=== PATIENT | female | born 1985 | race Caucasian/White ===

== ENCOUNTER → 2017-10-17 23:15 | Observation (INO) ==
[2017-10-17 22:39] LABS: Bilirubin,Urine Negative (Negative); Blood,Urine Negative (Negative); Clarity,Urine Clear (Clear); Color,Urine Yellow (Yellow); Glucose,Urine (UA) Normal (Normal); Ketones,Urine Negative (Negative); Leukocyte Esterase,Urine Small (Negative); Nitrite,Urine Negative (Negative); PH,Urine 6.5 pH Units (5.0-8.0); Protein,Urine Negative (Neg-Trace); Specific Gravity,Urine < 1.005 (1.010-1.025); Urobilinogen,Urine Normal (Normal)
[2017-10-17 22:41] LABS: Bacteria,Urine None Seen per hpf (None-Few); Hyaline Casts,Urine None Seen per lpf (None-Few); RBC,Urine 0-3 per hpf (0-3); Squamous Epithelial Cell,Urine Many per lpf (None-Few)
[2017-10-17 22:56] LABS: Amphetamine Screen,Urine Negative ng/mL (Cutoff=1000); Barbiturate Screen,Urine Negative ng/mL (Cutoff=200); Benzodiazepines Screen,Urine Negative ng/mL (Cutoff=200); Cannabinoid Screen,Urine Negative ng/mL (Cutoff = 50); Cocaine Screen,Urine Negative ng/mL (Cutoff= 300); Opiate Screen,Urine Negative ng/mL (Cutoff=300); Phencyclidine Screen,Urine Negative ng/mL (Cutoff=25)
--- NOTE | 2017-10-22 18:11 | OB/GYN Progress Note ---
Date of Encounter: 10/22/17 Time of Encounter: 18:09 - Assessment and Plan (1) 24 weeks gestation of Status: Acute 32-year-old female presented to labor and delivery at 24 weeks for rule out labor. Sterile vaginal exam closed thick and high. Nitrazine is negative. No contractions noted on monitor. Patient was followed by wood cutter over the course of her stay. Urinalysis was normal. Instructions for patient were given. She is to follow-up in the office. Patient placed at pelvic rest. Subjective - Subjective Principal diagnosis: Rule out labor Interval history: 32-year-old female presented to labor and delivery at 24 weeks gestation complaining of watery discharge and contractions. Patient able to feel baby move. States contractions are very irregular. Antepartum ROS: loss of fluid Objective - Exam FHR: auscultation normal Auscultation: bilateral: normal Abdomen: Present: normal appearance, soft, gravid Uterus: Present: normal - Labs Labs: Abnormal lab results Ur Specific Deshler < 1.005 (1.010-1.025) L 10/17/17 22:26 Ur Leukocyte Esterase Small (Negative) H 10/17/17 22:26 Urine Microscopic WBC 3-5 per hpf (0-3) H 10/17/17 22:26 Ur Squamous Epith Cells Many per lpf (None-Few) H 10/17/17 22:26 Ur Culture Indicated? NO. (NO) A 10/17/17 22:26
== END | disposition home or self-care (01) ==
LOC: 1NENULAB
PROVIDERS: ADMIT Advanced Practice Midwife; ATTEND Advanced Practice Midwife

== ENCOUNTER → 2017-12-12 20:20 | Observation (INO) ==
[2017-12-12 17:49] LABS: Amphetamine Screen,Urine Negative ng/mL (Cutoff=1000); Barbiturate Screen,Urine Negative ng/mL (Cutoff=200); Benzodiazepines Screen,Urine Negative ng/mL (Cutoff=200); Cannabinoid Screen,Urine Negative ng/mL (Cutoff = 50); Cocaine Screen,Urine Negative ng/mL (Cutoff= 300); Opiate Screen,Urine Negative ng/mL (Cutoff=300); Phencyclidine Screen,Urine Negative ng/mL (Cutoff=25)
--- NOTE | 2017-12-12 19:29 | OB/GYN Progress Note ---
Date of Encounter: 12/12/17 Time of Encounter: 19:25 - Assessment and Plan (1) 28 weeks gestation of Current Visit: Yes Status: Acute admitted for observation (2) Contact dermatitis Current Visit: Yes Status: Acute Will give Claritin and 1% hydrocortisone cream Will prescribe Prednisone dose pack Discussed POC and patient with Dr. Weller Patient to follow up with Dr. Medina as scheduled. Qualifiers: Contact dermatitis type: allergic Contact dermatitis trigger: unspecified trigger Qualified Code(s): L23.9 - Allergic contact dermatitis, unspecified cause Subjective - Subjective Principal diagnosis: Rash in Interval history: Patient is a 32 y/o @ 28 weeks gestation presents to labor and delivery with complaints of a rash that stated yesterday and is progressively has gotten worse. Patient was seen by her OB Dr. Medina today and had liver enzymes, bile acids and TORCH titers. Patient states she was told to take benadryl but she is unable to due to caring for her child. Patient reports good movement, denies contractions, LOF or VB. Patient denies any difficulty with breathing. Patient states she was around Mums but she has never had a reaction to them in the past. Patient denies any changes in soaps or lotions. Antepartum ROS: movement normal, no loss of fluid, no vaginal bleeding, no contractions Objective - Exam FHR: auscultation normal FHR comments: FHR 130 bpm moderate variability + 15x15 accels no decels noted. No contractions noted. Auscultation: bilateral: normal Abdomen: Present: normal appearance, soft, gravid Uterus: Present: normal, firm Comments: Rash noted on bilateral knees and arms and scalp. Areas of rash are raised and red.
[~2017-12-12 20:20] MED LIST: Loratadine 10 MG TABLET PO SCH
== END | disposition home or self-care (01) ==
LOC: 1NENULAB
PROVIDERS: ADMIT Advanced Practice Midwife; ATTEND Advanced Practice Midwife

== ENCOUNTER 2018-01-26 10:33 | Observation (INO) ==
[2018-01-26 11:20] LABS: Basophils # 0.1 K/mcL (0.0-0.2); Basophils % 0.8 %; Eosinophils # 0.1 K/mcL (0.0-0.6); Eosinophils % 0.5 %; Hemoglobin 11.3 g/dL (11.5-15.4); Immature Granulocytes % 4.8 % (0-4); Lymphocytes # 1.5 K/mcL (0.6-4.6); Lymphocytes % 16.1 %; Mean Corpuscular HGB Conc 34.2 g/dL (31.6-35.5); Mean Corpuscular Hemoglobin 29.8 pg (28.0-33.3); Mean Corpuscular Volume 87.1 fL (83.0-100.0); Mean Platelet Volume 10.4 fL (9.4-12.4); Monocytes # 1.1 K/mcL (0.0-1.3); Neutrophils # 6.2 K/mcL (1.6-8.9); Platelet Count 157 K/mcL (140-400); Red Blood Count 3.79 M/mcL (3.82-4.97); Red Cell Distribution Width 13.5 % (11.5-14.5); Segmented Neutrophils % 65.8 %
[2018-01-26 11:39] LABS: Alanine Aminotransferase 16 Units/L (7-52); Aspartate Amino Transferase 18 Units/L (13-39); BUN/Creatinine Ratio 17 (6-26); Blood Urea Nitrogen 8 mg/dL (6-20); Lactate Dehydrogenase 147 Units/L (140-271); Uric Acid 3.8 mg/dL (2.3-7.6); eGFR For Non-African Americans > 60 (> 60)
[2018-01-26 12:00] LABS: Protein/Creatinine Ratio,Urine 0.43 mg/mg (0.00-0.20)
[2018-01-26 12:01] LABS: Amphetamine Screen,Urine Negative ng/mL (Cutoff=1000); Barbiturate Screen,Urine Negative ng/mL (Cutoff=200); Benzodiazepines Screen,Urine Negative ng/mL (Cutoff=200); Cannabinoid Screen,Urine Negative ng/mL (Cutoff = 50); Cocaine Screen,Urine Negative ng/mL (Cutoff= 300); Opiate Screen,Urine Negative ng/mL (Cutoff=300); Phencyclidine Screen,Urine Negative ng/mL (Cutoff=25)
[2018-01-26] MEDS: Betamethasone Acet/SodPhos 6 MG/ML MDV IM SCH (13:57)
--- NOTE | 2018-01-26 14:18 | OB/GYN Progress Note ---
Date of Encounter: 01/26/18 Time of Encounter: 14:14 - Assessment and Plan (1) 34 weeks gestation of Current Visit: Yes Status: Acute POC per consult with Dr Sauer Betamethasone Vitals Q4 hours Repeat PIH labs in am Consider discharge with increased office surveillance vs IOL (2) Pre-eclampsia affecting , antepartum Current Visit: Yes Status: Acute Subjective - Subjective Principal diagnosis: Pre-Eclampsia Interval history: Ms Collins is a at 34 weeks and 5 days that presents to labor and delivery triage with c/o edema and elevated blood pressures this am. She states positive movement. She denies headache, vision changes, epigastric pain, leaking of fluid, vaginal bleeding, and cramping/contractions. She has a positive history of preeclampsia with her previous child which was delivered early at 37 weeks gestation. She has been seen by Dr Medina for her care. Antepartum ROS: movement normal, no loss of fluid, no vaginal bleeding, no contractions Objective - Vital Signs Vital Signs: Intake and Output 01/25/18 01/26/18 01/26/18 23:59 07:59 15:59 Other: Weight 81 kg Patient Weight 01/26/18 23:59 Weight 81 kg - Exam FHR: auscultation normal, category 1 FHR comments: FHTs 145 with moderate variability and 15 x 15 accels. no decels. Category I tracing No contractions per monitor Auscultation: bilateral: normal Abdomen: Present: normal appearance, soft, gravid Uterus: Present: normal. Absent: firm, tenderness - Labs Labs: Abnormal lab results RBC 3.79 M/mcL (3.82-4.97) L 01/26/18 10:43 Hgb 11.3 g/dL (11.5-15.4) L 01/26/18 10:43 Hct 33.0 % (35.3-44.9) L 01/26/18 10:43 Immature Gran % 4.8 % (0-4) H 01/26/18 10:43 Creatinine 0.46 mg/dL (0.60-1.20) L 01/26/18 10:43 Protein/Creatinin Ratio 0.43 mg/mg (0.00-0.20) H 01/26/18 11:14
[2018-01-26] MEDS ORDERED: Acetaminophen 325 MG TABLET PO ONE (16:02)
[2018-01-27 07:03] LABS: Alanine Aminotransferase 16 Units/L (7-52); Aspartate Amino Transferase 17 Units/L (13-39); BUN/Creatinine Ratio 17 (6-26); Blood Urea Nitrogen 9 mg/dL (6-20); Lactate Dehydrogenase 155 Units/L (140-271); Uric Acid 3.8 mg/dL (2.3-7.6); eGFR For Non-African Americans > 60 (> 60)
--- NOTE | 2018-01-27 11:04 | Discharge Summary ---
Date of Encounter: 01/27/18 Time of Encounter: 11:04 - Discharge Diagnosis (1) 35 weeks gestation of Priority: Primary Status: Acute Comments: admitted for observation for [facility] labs stable and reviewed with Dr. Varner. Plan to discharge home after second dose of betamethasone (2) Pre-eclampsia affecting , antepartum Priority: Secondary Status: Acute Comments: Patient educated on [facility] s/s - Discharge Medications Home Medications: Vits96/Iron Fum/Folic [ Tablet] 1 each PO DAILY 12/12/17 [History] Ferrous Sulfate [High Potency Iron] 27 mg PO DAILY 01/26/18 [History] Allergies/Adverse Reactions: Allergy/AdvReac Type Severity Reaction Status Date / Time pseudoephedrine Allergy Mild Confusion Verified 11/12/17 12:42 [From Sudafed] Amoxicillin Allergy Rash Verified 11/12/17 12:42 Cefprozil [From Cefzil] Allergy Rash Verified 11/12/17 12:42 clavulanic acid Allergy Rash Verified 11/12/17 12:42 [From Augmentin] Penicillins Allergy Rash Verified 11/12/17 12:42 Data Procedures and tests throughout hospitalization: Laboratory Tests 01/26/18 01/26/18 01/26/18 10:43 10:43 11:14 WBC 9.5 RBC 3.79 L Hgb 11.3 L Hct 33.0 L MCV 87.1 MCH 29.8 MCHC 34.2 RDW 13.5 Plt Count 157 MPV 10.4 Immature Gran % 4.8 H Seg Neutrophils % 65.8 Lymphocytes % 16.1 Monocytes % 12.0 Eosinophils % 0.5 Basophils % 0.8 Neutrophils # 6.2 Lymphocytes # 1.5 Monocytes # 1.1 Eosinophils # 0.1 Basophils # 0.1 BUN 8 Creatinine 0.46 L Est GFR ( Amer) > 60 Est GFR (Non-Af Amer) > 60 BUN/Creatinine Ratio 17 Uric Acid 3.8 AST 18 ALT 16 Lactate Dehydrogenase 147 Urine Creatinine 14 Protein/Creatinin Ratio 0.43 H Urine Total Protein 6 Urine Opiates Screen Ur Barbiturates Screen Ur Phencyclidine Scrn Ur Amphetamines Screen U Benzodiazepines Scrn Urine Cocaine Screen U Marijuana (THC) Screen Ur Drug Screen Interp 01/26/18 01/27/18 11:14 06:14 WBC RBC Hgb Hct MCV MCH MCHC RDW Plt Count MPV Immature Gran % Seg Neutrophils % Lymphocytes % Monocytes % Eosinophils % Basophils % Neutrophils # Lymphocytes # Monocytes # Eosinophils # Basophils # BUN 9 Creatinine 0.53 L Est GFR ( Amer) > 60 Est GFR (Non-Af Amer) > 60 BUN/Creatinine Ratio 17 Uric Acid 3.8 AST 17 ALT 16 Lactate Dehydrogenase 155 Urine Creatinine Protein/Creatinin Ratio Urine Total Protein Urine Opiates Screen Negative Ur Barbiturates Screen Negative Ur Phencyclidine Scrn Negative Ur Amphetamines Screen Negative U Benzodiazepines Scrn Negative Urine Cocaine Screen Negative U Marijuana (THC) Screen Negative Ur Drug Screen Interp See Below Labs on day of discharge: Labs from last 24 hours 01/27/18 01/26/18 01/26/18 06:14 11:14 11:14 WBC RBC Hgb Hct MCV MCH MCHC RDW Plt Count MPV Immature Gran % Seg Neutrophils % Lymphocytes % Monocytes % Eosinophils % Basophils % Neutrophils # Lymphocytes # Monocytes # Eosinophils # Basophils # BUN 9 Creatinine 0.53 L Est GFR ( Amer) > 60 Est GFR (Non-Af Amer) > 60 BUN/Creatinine Ratio 17 Uric Acid 3.8 AST 17 ALT 16 Lactate Dehydrogenase 155 Urine Creatinine 14 Protein/Creatinin Ratio 0.43 H Urine Total Protein 6 Urine Opiates Screen Negative Ur Barbiturates Screen Negative Ur Phencyclidine Scrn Negative Ur Amphetamines Screen Negative U Benzodiazepines Scrn Negative Urine Cocaine Screen Negative U Marijuana (THC) Screen Negative Ur Drug Screen Interp See Below 01/26/18 01/26/18 10:43 10:43 WBC 9.5 RBC 3.79 L Hgb 11.3 L Hct 33.0 L MCV 87.1 MCH 29.8 MCHC 34.2 RDW 13.5 Plt Count 157 MPV 10.4 Immature Gran % 4.8 H Seg Neutrophils % 65.8 Lymphocytes % 16.1 Monocytes % 12.0 Eosinophils % 0.5 Basophils % 0.8 Neutrophils # 6.2 Lymphocytes # 1.5 Monocytes # 1.1 Eosinophils # 0.1 Basophils # 0.1 BUN 8 Creatinine 0.46 L Est GFR ( Amer) > 60 Est GFR (Non-Af Amer) > 60 BUN/Creatinine Ratio 17 Uric Acid 3.8 AST 18 ALT 16 Lactate Dehydrogenase 147 Urine Creatinine Protein/Creatinin Ratio Urine Total Protein Urine Opiates Screen Ur Barbiturates Screen Ur Phencyclidine Scrn Ur Amphetamines Screen U Benzodiazepines Scrn Urine Cocaine Screen U Marijuana (THC) Screen Ur Drug Screen Interp Date of admission: 01/26/18 10:33 Discharging clinician: Mari Holley Anticipated date of discharge: 01/27/18 - Patient Status Disposition: Home, Self-Care Condition: Good Functional capacity at discharge: independent ambulation - Discharge Instructions Follow Up With: Gilberto Medina MD [Partnered Physician] - - Diet and Activity Activity: increase activity as tolerated Diet: regular diet Hospital Course DRY TALC RACKER Hospital course: Patient is a 32 y/o at 35 weeks and o days that presented to labor and delivery triage with c/o edema and elevated blood pressures yesterday. She states positive movement. She denies headache, vision changes, epigastric pain, leaking of fluid, vaginal bleeding, and cramping/contractions. She has a positive history of preeclampsia with her previous child which was delivered early at 37 weeks gestation. She has been seen by Dr Medina for her care. Antepartum ROS: movement normal, no loss of fluid, no vaginal bleeding, no contractions Time Attestation: Total time spent providing and/or coordinating discharge services: Time Spent: Less than 30 minutes Exam - Constitutional General appearance IM: A&O X 3, pleasant, answers questions appropriately - Respiratory Respiratory exam: Present: CTAB - Cardiovascular Cardiovascular exam IM: Present: RRR, +S1, +S2 - GI/Abdominal GI/Abdominal exam IM: normal bowel sounds - Extremities Exam Extremities exam IM: Present: full ROM, normal capillary refill, normal inspection - Neurological Exam Neurological exam: alert, oriented X3, reflexes normal - Other Additional findings: FHR 125 bpm moderate variability +15x15 accels no decels noted. NO contractions noted. Cat. 1 tracing. - VTE Reasons for not Prescribing Prophylaxis: Treatment not Indicated - Low risk for VTE
[2018-01-27] MEDS: Betamethasone Acet/SodPhos 6 MG/ML MDV IM SCH (13:47)
== END 2018-01-27 13:55 | disposition home or self-care (01) ==
LOC: 1NENULAB
PROVIDERS: ADMIT Advanced Practice Midwife; ATTEND Advanced Practice Midwife

== ENCOUNTER 2018-02-18 10:15 | Inpatient (IN) ==
[2018-02-18] MEDS ORDERED: miSOPROStol 25 MCG TABLET PO PRN (10:40)
[2018-02-18] MEDS ORDERED: Naloxone 0.4 MG/ML INJ IVP PRN (10:40)
[2018-02-18] MEDS ORDERED: Ondansetron 4 MG/2 ML VIAL IVP PRN (10:40)
[2018-02-18] MEDS ORDERED: *HR* Nalbuphine 10 MG/ML AMPUL IVP PRN (10:40)
[2018-02-18] MEDS ORDERED: Metoclopramide 10 MG/2 ML VIAL IVP PRN (10:40)
[2018-02-18] MEDS ORDERED: Famotidine 20 MG/2 ML VIAL IVP PRN (10:40)
[2018-02-18] MEDS ORDERED: Ringers Solution, Lactated 1,000 ML ONE (10:45)
[2018-02-18] MEDS ORDERED: Ringers Solution, Lactated 1,000 ML IVC SCH (10:45)
[2018-02-18] MEDS ORDERED: EPHEDrine 50 MG/ML VIAL IVP PRN (10:57)
[2018-02-18] MEDS ORDERED: Epidural Premix (fent/bupiv) 110 ML EP SCH (11:00)
[2018-02-18] MEDS ORDERED: Lidocaine -MPF 2% 5 ML VIAL ONE (11:42)
--- NOTE | 2018-02-18 12:00 | Anesthesia Evaluation PreOp ---
Date of Encounter: 02/18/18 Time of Encounter: 11:57 - Past History Planned Operation: vaginal del, induction Cardiac History: Denies any Significant Hx Pulmonary History: Denies Any Significant HX ORTHOPEDIC TECHNICIAN History: Denies Any Significant HX Other Medical History: Denies Any Significant HX Anesthesia History: No Prior Anesthetic Complications, Past Anesthesia (previous epidural, blood pressure went real low post epidural.) Alcohol Use: none Drug use: none Medications and Allergies Vits96/Iron Fum/Folic [ Tablet] 1 each PO DAILY 12/12/17 [History] Ferrous Sulfate [High Potency Iron] 27 mg PO DAILY 01/26/18 [History] Allergy/AdvReac Type Severity Reaction Status Date / Time pseudoephedrine Allergy Mild Confusion Verified 11/12/17 12:42 [From Sudafed] Amoxicillin Allergy Rash Verified 11/12/17 12:42 Cefprozil [From Cefzil] Allergy Rash Verified 11/12/17 12:42 clavulanic acid Allergy Rash Verified 11/12/17 12:42 [From Augmentin] Penicillins Allergy Rash Verified 11/12/17 12:42 Anesthesia Exam - HEENT Pupil (Motor): Pupils equal Mallampati: II Teeth: Normal Oral Opening: Greater than 3 - ORTHOPEDIC TECHNICIAN LOC: Oriented ORTHOPEDIC TECHNICIAN Motor: Normal RUE, Normal LUE, Normal RLE, Normal LLE, Normal Face ORTHOPEDIC TECHNICIAN Sensory: Normal: RUE, LUE, RLE, LLE, Face - Cardiac Rhythm: Regular Murmur: None - Pulmonary Breath Sounds: bilateral Clear Respiratory Effort: Symmetrical Anesthesia Assess/Plan ASA Score: 2 Level of consciousness: Cooperative, Oriented, Tranquil Anesthetic Plan: General, Spinal, Epidural Monitoring Plan: Standard Monitors Recovery Plan: PACU
--- NOTE | 2018-02-18 12:01 | OB Labor Progress Note ---
Date of Encounter: 02/18/18 Time of Encounter: 11:57 Labor Progress Note - Subjective Subjective: Patient comfortable and reports no contractions - Cervix Cervix: 50/-2 - Heart Tones Heart Tones: Baseline 140 Moderate variability Accelerations present 15x15 No decelerations FHR category I - Albers Albers: No activity - Interventions Interventions: SVE Cook catheter placed without difficulty 50mcg po misoprostol given - Plan Physician notified: No Plan: Continue induction management Recheck catheter Status evaluation 4 hours Anticipate vaginal delivery
[2018-02-18 12:22] LABS: Basophils # 0.1 K/mcL (0.0-0.2); Basophils % 0.6 %; Eosinophils # 0.1 K/mcL (0.0-0.6); Eosinophils % 0.7 %; Hematocrit 33.3 % (35.3-44.9); Hemoglobin 11.6 g/dL (11.5-15.4); Immature Granulocytes % 2.8 % (0-4); Lymphocytes # 1.7 K/mcL (0.6-4.6); Lymphocytes % 17.3 %; Mean Corpuscular HGB Conc 34.8 g/dL (31.6-35.5); Mean Corpuscular Hemoglobin 29.4 pg (28.0-33.3); Mean Corpuscular Volume 84.3 fL (83.0-100.0); Mean Platelet Volume 10.5 fL (9.4-12.4); Monocytes % 10.1 %; Neutrophils # 6.6 K/mcL (1.6-8.9); Platelet Count 172 K/mcL (140-400); Red Blood Count 3.95 M/mcL (3.82-4.97); Segmented Neutrophils % 68.5 %
[2018-02-18 12:31] LABS: Amphetamine Screen,Urine Negative ng/mL (Cutoff=1000); Barbiturate Screen,Urine Negative ng/mL (Cutoff=200); Benzodiazepines Screen,Urine Negative ng/mL (Cutoff=200); Cannabinoid Screen,Urine Negative ng/mL (Cutoff = 50); Cocaine Screen,Urine Negative ng/mL (Cutoff= 300); Opiate Screen,Urine Negative ng/mL (Cutoff=300); Phencyclidine Screen,Urine Negative ng/mL (Cutoff=25)
--- NOTE | 2018-02-18 13:49 | OB/GYN History & Physical ---
Date of Encounter: 02/18/18 Time of Encounter: 13:44 Assessment and Plan (1) 38 weeks gestation of Current visit: Yes Status: Acute (2) Pre-eclampsia affecting , antepartum Current visit: No Status: Acute Induction of labor History of Present Illness Chief complaint: Elevated 24-hour urine HPI: Ms. Collins is a 32 year old female who presented to office today at 38 weeks and 1 day. Patient not feeling well. Patient states over weekend blood pressures have been very high with diastolics between 110 and 116. Patient with headache. Blood pressure today was stable. 24-hour urine came back showing 471. Because of elevated 24-hour urine, labile blood pressures and headaches patient was sent to labor and delivery for induction at 38 weeks and 1 day. Patient with EDC of March 04. Patient is with allergies to amoxicillin, Cefzil, Sudafed and Augmentin. She is currently on vitamins. She has no chronic medical conditions. Surgical history is negative. Socially she d enies tobacco or illicit drug use. She does drink occasionally. Obstetric history significant for one term vaginal delivery. Family history is significant for arthritis, lymphoma, hypertension and heart disease. Past Med Surg Social Fam HX - Past Medical History Medical history: asthma Additional medical history: subchoronic hemorrage that measured 6cm and now is 2 cm as of 2weeks Psychiatric history: anxiety - Past Surgical History Additional surgical history: 2 colonoscopy. T&A. - Social History Smoking Status: Never smoker Smokeless Tobacco Status: No Alcohol use: none Drug use: none - Family History Mother Family Member Ethnicity: Non- Living Status: Still Living Hx Family Cardiac Disorders: No Hx Family Respiratory Disorders: No Hx Family Cancer: No Hx Family GI Disorders: No Hx Family Genitourinary Disorders: No Hx Family Endocrine Disorder: No Hx Family Musculoskeletal Disorders: No Hx Family Neuromuscular Disorders: No Hx Family Neurologic Disorders: No Hx Family HEENT Disorders: No Hx Family Autoimmune Disorders: No Hx Family Reproductive Disorders: No Hx Family Psychosocial Disorders: No Hx Family Medical Disorders: No Obstetrical History - Pregnancies : 2 Para: 1 Term: 1 Livin Medications and Allergies Vits96/Iron Fum/Folic [ Tablet] 1 each PO DAILY 12/12/17 [History] Ferrous Sulfate [High Potency Iron] 27 mg PO DAILY 01/26/18 [History] Allergy/AdvReac Type Severity Reaction Status Date / Time pseudoephedrine Allergy Mild Confusion Verified 11/12/17 12:42 [From Sudafed] Amoxicillin Allergy Rash Verified 11/12/17 12:42 Cefprozil [From Cefzil] Allergy Rash Verified 11/12/17 12:42 clavulanic acid Allergy Rash Verified 11/12/17 12:42 [From Augmentin] Penicillins Allergy Rash Verified 11/12/17 12:42 Review of System OB All systems PM: reviewed and no additional remarkable complaints except as stated Exam - Constitutional Constitutional: well developed, well nourished, no acute distress, average body habitus - HEENT HEENT: EOMI, PERRL - Neck Neck exam: full ROM - Lungs Respiratory exam: CTAB - Cardiovascular Cardiovascular exam: RRR - Abdomen Abdomen: Present: bowel sounds normal, gravid, non tender - Extremities Extremities exam: full ROM - Vagina Vagina: Present: normal moisture - Cervix Dilation: 1 Effacement: 50 Station: -2 - Uterus Uterus exam: Present: normal size Results Result Diagrams: 02/18/18 11:00 Abnormal lab results Hct 33.3 % (35.3-44.9) L 02/18/18 11:00 All other labs normal. - VTE Reasons for not Prescribing Prophylaxis: Treatment not Indicated - Low risk for VTE
[2018-02-18 15:00] LABS: Alanine Aminotransferase 12 Units/L (7-52); Aspartate Amino Transferase 16 Units/L (13-39); BUN/Creatinine Ratio 21 (6-26); Blood Urea Nitrogen 10 mg/dL (6-20); Lactate Dehydrogenase 231 Units/L (140-271); Uric Acid 4.4 mg/dL (2.3-7.6); eGFR For Non-African Americans > 60 (> 60)
[2018-02-18 15:52] LABS: Protein/Creatinine Ratio,Urine 0.44 mg/mg (0.00-0.20)
--- NOTE | 2018-02-18 16:38 | OB/GYN Progress Note ---
Date of Encounter: 02/18/18 Time of Encounter: 16:36 - Assessment and Plan (1) 38 weeks gestation of Current Visit: Yes Status: Acute (2) Pre-eclampsia affecting , antepartum Current Visit: No Status: Acute Induction of labor Subjective - Subjective Principal diagnosis: labor eval Interval history: 32-year-old female with preeclampsia admitted for induction of labor. Reyes removed. Sterile vaginal exam 7/90/0 station and vertex. Artificial rupture members performed with clear fluid. Objective - Vital Signs Vital Signs: Intake and Output 02/18/18 02/18/18 02/18/18 07:59 15:59 23:59 Other: Weight 83.1 kg Patient Weight 02/18/18 23:59 Weight 83.1 kg - Exam FHR: category 1 Abdomen: Present: normal appearance Uterus: Present: normal, firm Cervical dilation: 7 Cervix effacement: 90 station: 0 - Labs Labs: Abnormal lab results Hct 33.3 % (35.3-44.9) L 02/18/18 11:00 Creatinine 0.48 mg/dL (0.60-1.20) L 02/18/18 11:00 Protein/Creatinin Ratio 0.44 mg/mg (0.00-0.20) H 02/18/18 11:00
[2018-02-18] MEDS ORDERED: Oxytocin 20 units/ LR 1000 mL 20 UNIT/1,000 ML BAG IVC ONE ×2 (17:41→19:20)
--- NOTE | 2018-02-18 18:35 | OB/GYN Procedure Note ---
Delivery - Delivery Date: 02/18/18 Provider: Gilberto Medina Intrapartum events: none Delivery induction: harry Delivery augmentation: rupture of membranes Delivery monitor: external FHT, external uterine Anesthesia: none Quantitated Blood Loss: 300 - Infant (s) Infant A Infant Delivery Date: 02/18/18 Infant Delivery Time: 17:48 Presentation: vertex Position: OA Route of delivery: Gender: Female Viability: Viable Pounds: 6 Ounces: 6 Weight Gram: 2.905 kg at 1 minute: 8 at 5 mins: 9 Shoulder Dystocia: not encountered Specimens collected: cord blood Placenta: spontaneous Cord: nuchal cord, delivered through nuchal - Repair Episiotomy: none Laceration Description: Perineal - 2nd Degree - Complications Delivery complications: none - Disposition Mom disposition: stable in LDR disposition: stable in LDR - Comments Comments: Patient progressed to complete and pushing and had a spontaneous vaginal delivery of a female over an intact perineum. Infant's head was in the perineum easily. There was a cord around the neck 1 which could not be reduced and thus was delivered through. Infant cried immediately upon delivery. Nuchal cord was unwrapped. After 1 minute the cord was clamped and cut and the infant was then passed to nursing in attendance. Cord bloods obtained. Placenta was delivered spontaneously and intact. There are no cervical, vaginal, or periurethral lacerations noted. There was a second-degree perineal laceration through patient's previous scar. Patient delivered a female infant weight was 6 lbs. 6 oz. with Apgars of 8 at 1 minute 9 at 5 minutes estimated blood loss is 300 mL
[2018-02-18] MEDS ORDERED: Acetaminophen 325 MG TABLET PO PRN (20:47)
[2018-02-18] MEDS ORDERED: Measles/Mumps/Rubella Vacc 0.5 ML VIAL SQ PRN (20:47)
[2018-02-18] MEDS ORDERED: Oxytocin 20 units/ LR 1000 mL 20 UNIT/1,000 ML BAG IVC SCH (20:47)
[2018-02-18] MEDS: Ibuprofen 600 MG TABLET PO PRN (21:36)
[2018-02-19] MEDS: Ibuprofen 600 MG TABLET PO PRN ×2 (03:13→10:34)
[2018-02-19 08:06] LABS: Basophils # 0.1 K/mcL (0.0-0.2); Basophils % 0.5 %; Eosinophils # 0.1 K/mcL (0.0-0.6); Eosinophils % 0.5 %; Hematocrit 29.4 % (35.3-44.9); Lymphocytes # 2.2 K/mcL (0.6-4.6); Lymphocytes % 14.4 %; Mean Corpuscular Hemoglobin 29.1 pg (28.0-33.3); Mean Corpuscular Volume 85.5 fL (83.0-100.0); Mean Platelet Volume 10.3 fL (9.4-12.4); Monocytes # 1.7 K/mcL (0.0-1.3); Monocytes % 10.7 %; Neutrophils # 11.1 K/mcL (1.6-8.9); Platelet Count 177 K/mcL (140-400); Red Blood Count 3.44 M/mcL (3.82-4.97); Red Cell Distribution Width 13.2 % (11.5-14.5); Segmented Neutrophils % 71.9 %
[2018-02-19] MEDS ORDERED: Prenatal Vit/FA 1 EACH TABLET PO SCH (09:00)
[2018-02-19 09:35] VITALS: BP 124/85
--- NOTE | 2018-02-19 10:50 | Discharge Summary ---
Date of Encounter: 02/19/18 Time of Encounter: 10:46 - Discharge Diagnosis (1) Vaginal delivery Priority: Primary Status: Acute Comments: S/P vaginal delivery day 1 Pain well controlled Lochia light and without clots VSS Tolerating regular diet; passing flatus Voiding without difficulty Breast feeding Discharge home today POC per consult with Dr Thomas - Discharge Medications Prescriptions: Ibuprofen [Motrin] 600 mg PO Q6HR PRN #30 tablet PRN Reason: pain Breast Pump [BREAST PUMP] 1 each .ROUTE AD #1 each Docusate [Colace] 100 mg PO BID #30 capsule Ferrous Sulfate 325 mg PO DAILY #90 tablet Home Medications: Vits96/Iron Fum/Folic [ Tablet] 1 each PO DAILY 12/12/17 [History] Acetaminophen [Tylenol] 650 mg PO Q6HR PRN tablet 02/19/18 [Rx] Breast Pump [BREAST PUMP] 1 each .ROUTE AD #1 each 02/19/18 [Rx] Docusate [Colace] 100 mg PO BID #30 capsule 02/19/18 [Rx] Ferrous Sulfate 325 mg PO DAILY #90 tablet 02/19/18 [Rx] Ibuprofen [Motrin] 600 mg PO Q6HR PRN #30 tablet 02/19/18 [Rx] Allergies/Adverse Reactions: Allergy/AdvReac Type Severity Reaction Status Date / Time pseudoephedrine Allergy Mild Confusion Verified 11/12/17 12:42 [From Sudafed] Amoxicillin Allergy Rash Verified 11/12/17 12:42 Cefprozil [From Cefzil] Allergy Rash Verified 11/12/17 12:42 clavulanic acid Allergy Rash Verified 11/12/17 12:42 [From Augmentin] Penicillins Allergy Rash Verified 11/12/17 12:42 Data Procedures and tests throughout hospitalization: Laboratory Tests 02/18/18 02/18/18 02/18/18 11:00 11:00 11:00 WBC 9.6 RBC 3.95 Hgb 11.6 Hct 33.3 L MCV 84.3 MCH 29.4 MCHC 34.8 RDW 13.0 Plt Count 172 MPV 10.5 Immature Gran % 2.8 Seg Neutrophils % 68.5 Lymphocytes % 17.3 Monocytes % 10.1 Eosinophils % 0.7 Basophils % 0.6 Neutrophils # 6.6 Lymphocytes # 1.7 Monocytes # 1.0 Eosinophils # 0.1 Basophils # 0.1 BUN 10 Creatinine 0.48 L Est GFR ( Amer) > 60 Est GFR (Non-Af Amer) > 60 BUN/Creatinine Ratio 21 Uric Acid 4.4 AST 16 ALT 12 Lactate Dehydrogenase 231 Urine Creatinine Protein/Creatinin Ratio Urine Total Protein Urine Opiates Screen Negative Ur Barbiturates Screen Negative Ur Phencyclidine Scrn Negative Ur Amphetamines Screen Negative U Benzodiazepines Scrn Negative Urine Cocaine Screen Negative U Marijuana (THC) Screen Negative Ur Drug Screen Interp See Below 02/18/18 02/19/18 11:00 07:52 WBC 15.5 H D RBC 3.44 L Hgb 10.0 L D Hct 29.4 L MCV 85.5 MCH 29.1 MCHC 34.0 RDW 13.2 Plt Count 177 MPV 10.3 Immature Gran % 2.0 Seg Neutrophils % 71.9 Lymphocytes % 14.4 Monocytes % 10.7 Eosinophils % 0.5 Basophils % 0.5 Neutrophils # 11.1 H Lymphocytes # 2.2 Monocytes # 1.7 H Eosinophils # 0.1 Basophils # 0.1 BUN Creatinine Est GFR ( Amer) Est GFR (Non-Af Amer) BUN/Creatinine Ratio Uric Acid AST ALT Lactate Dehydrogenase Urine Creatinine 9 Protein/Creatinin Ratio 0.44 H Urine Total Protein 4 Urine Opiates Screen Ur Barbiturates Screen Ur Phencyclidine Scrn Ur Amphetamines Screen U Benzodiazepines Scrn Urine Cocaine Screen U Marijuana (THC) Screen Ur Drug Screen Interp Labs on day of discharge: Labs from last 24 hours 02/19/18 02/18/18 02/18/18 07:52 11:00 11:00 WBC 15.5 H D RBC 3.44 L Hgb 10.0 L D Hct 29.4 L MCV 85.5 MCH 29.1 MCHC 34.0 RDW 13.2 Plt Count 177 MPV 10.3 Immature Gran % 2.0 Seg Neutrophils % 71.9 Lymphocytes % 14.4 Monocytes % 10.7 Eosinophils % 0.5 Basophils % 0.5 Neutrophils # 11.1 H Lymphocytes # 2.2 Monocytes # 1.7 H Eosinophils # 0.1 Basophils # 0.1 BUN 10 Creatinine 0.48 L Est GFR ( Amer) > 60 Est GFR (Non-Af Amer) > 60 BUN/Creatinine Ratio 21 Uric Acid 4.4 AST 16 ALT 12 Lactate Dehydrogenase 231 Urine Creatinine 9 Protein/Creatinin Ratio 0.44 H Urine Total Protein 4 Urine Opiates Screen Ur Barbiturates Screen Ur Phencyclidine Scrn Ur Amphetamines Screen U Benzodiazepines Scrn Urine Cocaine Screen U Marijuana (THC) Screen Ur Drug Screen Interp 02/18/18 02/18/18 11:00 11:00 WBC 9.6 RBC 3.95 Hgb 11.6 Hct 33.3 L MCV 84.3 MCH 29.4 MCHC 34.8 RDW 13.0 Plt Count 172 MPV 10.5 Immature Gran % 2.8 Seg Neutrophils % 68.5 Lymphocytes % 17.3 Monocytes % 10.1 Eosinophils % 0.7 Basophils % 0.6 Neutrophils # 6.6 Lymphocytes # 1.7 Monocytes # 1.0 Eosinophils # 0.1 Basophils # 0.1 BUN Creatinine Est GFR ( Amer) Est GFR (Non-Af Amer) BUN/Creatinine Ratio Uric Acid AST ALT Lactate Dehydrogenase Urine Creatinine Protein/Creatinin Ratio Urine Total Protein Urine Opiates Screen Negative Ur Barbiturates Screen Negative Ur Phencyclidine Scrn Negative Ur Amphetamines Screen Negative U Benzodiazepines Scrn Negative Urine Cocaine Screen Negative U Marijuana (THC) Screen Negative Ur Drug Screen Interp See Below Date of admission: 02/18/18 10:15 Primary care physician: PCP NONE Consults: 02/18/18 20:47 Consult to Ep Technologist [CONS] Routine Comment: Vaginal delivery, consult needed Discharging clinician: Mariel Schultz Anticipated date of discharge: 02/19/18 - Patient Status Disposition: Home, Self-Care Condition: Good Functional capacity at discharge: independent ambulation Overall status at discharge: patient is progressing back to baseline - Discharge Instructions Follow Up With: NONE,PCP [Primary Care Provider] - Gilberto Medina MD [Partnered Physician] - - Diet and Activity Activity: increase activity as tolerated Diet: regular diet Hospital Course Reason for admission: induction of labor Delivery: Episiotomy: none Laceration: 2nd degree Other procedures: none complications: none Discharge diagnosis: IUP at term delivered baby: female Time Attestation: Total time spent providing and/or coordinating discharge services: Time Spent: Less than 30 minutes Exam - Constitutional Vitals: Temp Pulse Resp BP Pulse Ox 97.9 F 102 14 124/85 98 02/19/18 07:45 02/19/18 07:45 02/19/18 07:45 02/19/18 07:45 02/19/18 07:45 General appearance IM: cooperative, A&O X 3, pleasant - Respiratory Respiratory exam: Present: CTAB - Cardiovascular Cardiovascular exam IM: Present: RRR, +S1, +S2 - GI/Abdominal GI/Abdominal exam IM: normal bowel sounds, soft - Rectal Rectal exam: deferred - Uterine Tone: Firm Uterus Position: At Umbilicus, Midline - Extremities Exam Extremities exam IM: Present: normal capillary refill, normal inspection, radial pulses palpable and symmetrical - Neurological Exam Neurological exam: alert, oriented X3
[2018-02-19] MEDS ORDERED: Benzocaine/Menthol 56 GM AEROSOL SPRAY TP PRN (10:51)
[2018-02-19] MEDS ORDERED: Methylergonovine 0.2 MG/ML AMPUL IM ONE (16:49)
== END 2018-02-19 16:50 | disposition home or self-care (01) | DRG 806 ==
LOC: 1NENULAB 10:15 → 1NENUOBS 20:33
PROVIDERS: ADMIT Obstetrics & Gynecology; ATTEND Obstetrics & Gynecology

== ENCOUNTER → 2020-08-01 23:58 | Observation (INO) ==
[2020-08-01 22:56] LABS: Bilirubin,Urine Negative (Negative); Blood,Urine Negative (Negative); Clarity,Urine Clear (Clear); Color,Urine Colorless (Yellow); Glucose,Urine (UA) Normal (Normal); Ketones,Urine Negative (Negative); Leukocyte Esterase,Urine Small (Negative); Nitrite,Urine Negative (Negative); PH,Urine 6.5 pH Units (5.0-8.0); Protein,Urine Negative (Neg-Trace); Specific Gravity,Urine 1.006 (1.010-1.025); Urobilinogen,Urine Normal (Normal)
[2020-08-01 22:59] LABS: WBC,Urine 0-3 per hpf (0-3)
== END | disposition home or self-care (01) ==
LOC: 1NENULAB
PROVIDERS: ADMIT Obstetrics & Gynecology; ATTEND Obstetrics & Gynecology

== ENCOUNTER 2020-08-06 14:09 | Inpatient (IN) ==
[2020-08-06] MEDS ORDERED: Ondansetron 4 MG/2 ML VIAL IVP PRN ×2 (14:40→23:24)
[2020-08-06] MEDS ORDERED: *HR* Nalbuphine 10 MG/ML AMPUL IV PRN (14:40)
[2020-08-06] MEDS ORDERED: Azithromycin 500 MG in 0.9 % Sodium Chloride 250 ML IVPB ONE (14:40)
[2020-08-06] MEDS ORDERED: Lidocaine 1% 20 ML MDV INFILT PRN (14:40)
[2020-08-06] MEDS ORDERED: Naloxone 0.4 MG/ML INJ IVP PRN (14:40)
[2020-08-06] MEDS ORDERED: Metoclopramide 10 MG/2 ML VIAL IVP PRN (14:40)
[2020-08-06] MEDS ORDERED: Famotidine 20 MG/2 ML VIAL IVP PRN (14:40)
[2020-08-06] MEDS ORDERED: Ringers Solution, Lactated 1,000 ML IVC SCH (14:45)
[2020-08-06 15:35] LABS: Basophils # 0.1 K/mcL (0.0-0.2); Basophils % 0.6 %; Eosinophils % 0.3 %; Hematocrit 36.3 % (35.3-44.9); Hemoglobin 12.3 g/dL (11.5-15.4); Immature Granulocytes % 1.4 % (0-4); Lymphocytes # 1.7 K/mcL (0.6-4.6); Lymphocytes % 16.1 %; Mean Corpuscular HGB Conc 33.9 g/dL (31.6-35.5); Mean Corpuscular Volume 88.5 fL (83.0-100.0); Mean Platelet Volume 10.4 fL (9.4-12.4); Monocytes # 0.9 K/mcL (0.0-1.3); Monocytes % 8.3 %; Neutrophils # 7.5 K/mcL (1.6-8.9); Platelet Count 190 K/mcL (140-400); Segmented Neutrophils % 73.3 %; White Blood Count 10.2 K/mcL (4.3-11.1)
[2020-08-06 15:50] LABS: Amphetamine Screen,Urine Negative ng/mL (Cutoff=1000); Barbiturate Screen,Urine Negative ng/mL (Cutoff=200); Benzodiazepines Screen,Urine Negative ng/mL (Cutoff=200); Cannabinoid Screen,Urine Negative ng/mL (Cutoff = 50); Cocaine Screen,Urine Negative ng/mL (Cutoff= 300); Opiate Screen,Urine Negative ng/mL (Cutoff=300); Phencyclidine Screen,Urine Negative ng/mL (Cutoff=25)
[2020-08-06] MEDS ORDERED: Oxytocin 20 units/ LR 1000 mL 20 UNIT/1,000 ML BAG IVC SCH ×3 (16:00→23:24)
[2020-08-06] MEDS ORDERED: Ibuprofen 600 MG TABLET PO PRN (20:15)
[2020-08-06] MEDS ORDERED: Acetaminophen 325 MG TABLET PO PRN ×2 (20:15→23:24)
[2020-08-06] MEDS ORDERED: Benzocaine/Menthol 56 GM AEROSOL SPRAY TP PRN ×2 (20:15→23:24)
[2020-08-06] MEDS ORDERED: Measles/Mumps/Rubella Vacc 0.5 ML VIAL SQ PRN ×2 (20:15→23:24)
[2020-08-06] MEDS ORDERED: *HR* HYDROcodone/Acet 5/325 mg TABLET PO PRN ×2 (20:15→23:24)
[2020-08-06] MEDS ORDERED: Lanolin 7 G OINT...G. TP PRN ×2 (20:15→23:24)
[2020-08-06 21:28] LABS: Alanine Aminotransferase 10 Units/L (7-52); Aspartate Amino Transferase 16 Units/L (13-39); BUN/Creatinine Ratio 17 (6-26); Blood Urea Nitrogen 10 mg/dL (6-20); Lactate Dehydrogenase 184 Units/L (140-271); Uric Acid 4.6 mg/dL (2.3-7.6); eGFR For African Americans > 60 (> 60); eGFR For Non-African Americans > 60 (> 60)
[2020-08-06 21:43] LABS: Protein/Creatinine Ratio,Urine 0.47 mg/mg (0.00-0.20)
[2020-08-07] MEDS: Ibuprofen 600 MG TABLET PO PRN ×4 (00:59→20:50)
[2020-08-07 05:48] LABS: Basophils % 0.3 %; Eosinophils % 0.3 %; Hematocrit 31.8 % (35.3-44.9); Hemoglobin 11.2 g/dL (11.5-15.4); Immature Granulocytes % 0.6 % (0-4); Lymphocytes # 1.7 K/mcL (0.6-4.6); Lymphocytes % 12.9 %; Mean Corpuscular HGB Conc 35.2 g/dL (31.6-35.5); Mean Corpuscular Hemoglobin 30.7 pg (28.0-33.3); Mean Corpuscular Volume 87.1 fL (83.0-100.0); Mean Platelet Volume 10.5 fL (9.4-12.4); Monocytes # 1.6 K/mcL (0.0-1.3); Monocytes % 12.4 %; Neutrophils # 9.7 K/mcL (1.6-8.9); Platelet Count 169 K/mcL (140-400); Red Blood Count 3.65 M/mcL (3.82-4.97); Red Cell Distribution Width 13.9 % (11.5-14.5); Segmented Neutrophils % 73.5 %; White Blood Count 13.1 K/mcL (4.3-11.1)
[2020-08-07] MEDS ORDERED: Prenatal Vit/FA 1 EACH TABLET PO SCH ×2 (09:00)
[2020-08-07 19:49] VITALS: BP 122/88
== END 2020-08-07 20:54 | disposition home or self-care (01) | DRG 806 ==
LOC: 1NENULAB 14:09 → 1NENUOBS 22:37
PROVIDERS: ADMIT Obstetrics & Gynecology; ATTEND Obstetrics & Gynecology